=== PATIENT | female | born 1990 | race Caucasian/White ===

== ENCOUNTER 2021-03-15 13:35 | Emergency (ER) | payer MEDICARE ==
[2021-03-15 14:11] VITALS: TEMP 98.2
--- NOTE | 2021-03-15 15:16 | XR ---
EXAMINATION TYPE: XR chest 2V DATE OF EXAM: 03/15/2021 COMPARISON: 06/08/2010 INDICATION: Chest pain TECHNIQUE: Frontal and lateral views of the chest are obtained. FINDINGS: The heart size is normal. The pulmonary vasculature is normal. The lungs are clear. IMPRESSION: 1. No acute pulmonary process.
[2021-03-15 15:21] LABS: ALT 32 U/L (4-34); AST 28 U/L (14-36); African American GFR (CKD) >90 (>60 ml/min/1.73 sqM); Albumin 4.1 g/dL (3.5-5.0); Alkaline Phosphatase 58 U/L (38-126); Anion Gap 9 mmol/L; Blood Urea Nitrogen 14 mg/dL (7-17); Calcium 9.8 mg/dL (8.4-10.2); Carbon Dioxide 24 mmol/L (22-30); Chloride 104 mmol/L (98-107); Glucose 105 mg/dL (74-99); Magnesium 1.8 mg/dL (1.6-2.3); Non-African American GFR(CKD) >90 (>60 ml/min/1.73 sqM); Potassium 3.9 mmol/L (3.5-5.1); Sodium 137 mmol/L (137-145); Total Bilirubin 0.3 mg/dL (0.2-1.3); Total Protein 7.5 g/dL (6.3-8.2)
[2021-03-15 15:30] LABS: INR 0.9 (<1.2); Partial Thromboplastin Time 23.2 sec (22.0-30.0); Prothrombin Time 9.6 sec (9.0-12.0)
--- NOTE | 2021-03-15 16:01 | ED ---
General Adult HPI - General Chief complaint: Chest Pain Stated complaint: Chest Pain Time Seen by Provider: 03/15/21 15:29 Source: patient, family, RN notes reviewed, old records reviewed Mode of arrival: wheelchair Limitations: no limitations - History of Present Illness Initial comments: 30 -year-old female presenting with chief complaint of chest pain and syncopal episode. Patient was at work. She developed a central sharp chest pain. Moments after this pain began she did pass out and fall backwards. She had head trauma. She was unconscious for approximately 1 minute. She denies current . Denies abdominal pain nausea vomiting. Denies previous history of CAD or PE. - Related Data Home Medications Medication Instructions Recorded Confirmed No Known Home Medications 03/15/21 03/15/21 Allergies Allergy/AdvReac Type Severity Reaction Status Date / Time anesthesia medication AdvReac Unknown Uncoded 03/15/21 15:53 Review of Systems ROS Statement: Those systems with pertinent positive or pertinent negative responses have been documented in the HPI. ROS Other: All systems not noted in ROS Statement are negative. Past Medical History History of Any Multi-Drug Resistant Organisms: None Reported Additional Past Surgical History / Comment(s): I&D right inner thigh 2009 Past Psychological History: Depression Smoking Status: Current every day smoker Past Alcohol Use History: None Reported Past Drug Use History: Marijuana General Exam Limitations: no limitations General appearance: alert, in no apparent distress Head exam: Present: normocephalic, other (Occipital soft tissue swelling, no laceration) Eye exam: Present: normal appearance, PERRL ENT exam: Present: normal exam Neck exam: Present: normal inspection. Absent: tenderness, meningismus Respiratory exam: Present: normal lung sounds bilaterally. Absent: respiratory distress, wheezes, rales Cardiovascular Exam: Present: regular rate, normal rhythm GI/Abdominal exam: Present: soft. Absent: distended, tenderness, guarding, rebound Extremities exam: Present: normal inspection, normal capillary refill. Absent: pedal edema Neurological exam: Present: alert, oriented X3, CN II-XII intact. Absent: motor sensory deficit Psychiatric exam: Present: normal affect, normal mood Skin exam: Present: warm, dry, intact. Absent: cyanosis, diaphoretic Course Vital Signs 03/15/21 03/15/21 14:02 17:08 Temperature 98.2 F Pulse Rate 62 56 L Respiratory 20 18 Rate Blood Pressure 151/84 137/76 O2 Sat by Pulse 100 100 Oximetry EKG Findings - EKG Comments: EKG Findings:: EKG: Sinus bradycardia, rate 58, GA interval 124, QRS duration 82, QTC 410, no ST segment elevation. Medical Decision Making - Medical Decision Making 22-year-old female with an episode of chest pain or syncope. Workup is initiated, EKG is sinus rhythm. She has stable vitals. She is uncertain exactly why she developed chest pain or passed out. There was no medial foot injury of this and she did have a bashir syncopal episode with collapse. She had head trauma. Head CT was obtained which is negative for intracranial hemorrhage or traumatic injury. She had a normal CBC, normal CMP negative troponin. Her d-dimer was elevated and CT angiography of the chest was obtained which was negative for any acute process. I did plan to observe this patient overnight for telemetry and serial cardiac enzymes. The patient declines. She states she feels fine. She wishes to be discharged home and will follow-up with her primary care physician. - Lab Data Result diagrams: 03/15/21 14:56 03/15/21 14:56 Lab Results 03/15/21 03/15/21 03/15/21 Range/Units 14:56 14:56 14:56 WBC 8.6 (3.8-10.6) k/uL RBC 4.64 (3.80-5.40) m/uL Hgb 13.9 (11.4-16.0) gm/dL Hct 40.9 (34.0-46.0) % MCV 88.1 D (80.0-100.0) fL MCH 30.0 (25.0-35.0) pg MCHC 34.1 (31.0-37.0) g/dL RDW 13.2 (11.5-15.5) % Plt Count 267 (150-450) k/uL MPV 8.9 Neutrophils % 73 % Lymphocytes % 21 % Monocytes % 3 % Eosinophils % 1 % Basophils % 0 % Neutrophils # 6.3 (1.3-7.7) k/uL Lymphocytes # 1.8 (1.0-4.8) k/uL Monocytes # 0.3 (0-1.0) k/uL Eosinophils # 0.1 (0-0.7) k/uL Basophils # 0.0 (0-0.2) k/uL PT 9.6 (9.0-12.0) sec INR 0.9 (<1.2) APTT 23.2 (22.0-30.0) sec D-Dimer 0.70 H (<0.60) mg/L FEU Sodium 137 (137-145) mmol/L Potassium 3.9 (3.5-5.1) mmol/L Chloride 104 (98-107) mmol/L Carbon Dioxide 24 (22-30) mmol/L Anion Gap 9 mmol/L BUN 14 (7-17) mg/dL Creatinine 0.52 (0.52-1.04) mg/dL Est GFR (CKD-EPI)AfAm >90 (>60 ml/min/1.73 sqM) Est GFR (CKD-EPI)NonAf >90 (>60 ml/min/1.73 sqM) Glucose 105 H (74-99) mg/dL Calcium 9.8 (8.4-10.2) mg/dL Magnesium 1.8 (1.6-2.3) mg/dL Total Bilirubin 0.3 (0.2-1.3) mg/dL AST 28 (14-36) U/L ALT 32 (4-34) U/L Alkaline Phosphatase 58 (38-126) U/L Troponin I (0.000-0.034) ng/mL Total Protein 7.5 (6.3-8.2) g/dL Albumin 4.1 (3.5-5.0) g/dL Urine Color Urine Appearance (Clear) Urine pH (5.0-8.0) Ur Specific [place] (1.001-1.035) Urine Protein (Negative) Urine Glucose (UA) (Negative) Urine Ketones (Negative) Urine Blood (Negative) Urine Nitrite (Negative) Urine Bilirubin (Negative) Urine Urobilinogen (<2.0) mg/dL Ur Leukocyte Esterase (Negative) Urine RBC (0-5) /hpf Urine WBC (0-5) /hpf Ur Squamous Epith Cells (0-4) /hpf Urine Mucus (None) /hpf Urine HCG, Qual (Not Detectd) 03/15/21 03/15/21 03/15/21 Range/Units 14:56 16:15 16:15 WBC (3.8-10.6) k/uL RBC (3.80-5.40) m/uL Hgb (11.4-16.0) gm/dL Hct (34.0-46.0) % MCV (80.0-100.0) fL MCH (25.0-35.0) pg MCHC (31.0-37.0) g/dL RDW (11.5-15.5) % Plt Count (150-450) k/uL MPV Neutrophils % % Lymphocytes % % Monocytes % % Eosinophils % % Basophils % % Neutrophils # (1.3-7.7) k/uL Lymphocytes # (1.0-4.8) k/uL Monocytes # (0-1.0) k/uL Eosinophils # (0-0.7) k/uL Basophils # (0-0.2) k/uL PT (9.0-12.0) sec INR (<1.2) APTT (22.0-30.0) sec D-Dimer (<0.60) mg/L FEU Sodium (137-145) mmol/L Potassium (3.5-5.1) mmol/L Chloride (98-107) mmol/L Carbon Dioxide (22-30) mmol/L Anion Gap mmol/L BUN (7-17) mg/dL Creatinine (0.52-1.04) mg/dL Est GFR (CKD-EPI)AfAm (>60 ml/min/1.73 sqM) Est GFR (CKD-EPI)NonAf (>60 ml/min/1.73 sqM) Glucose (74-99) mg/dL Calcium (8.4-10.2) mg/dL Magnesium (1.6-2.3) mg/dL Total Bilirubin (0.2-1.3) mg/dL AST (14-36) U/L ALT (4-34) U/L Alkaline Phosphatase (38-126) U/L Troponin I <0.012 (0.000-0.034) ng/mL Total Protein (6.3-8.2) g/dL Albumin (3.5-5.0) g/dL Urine Color Light Yellow Urine Appearance Clear (Clear) Urine pH 5.5 (5.0-8.0) Ur Specific [place] 1.007 (1.001-1.035) Urine Protein Negative (Negative) Urine Glucose (UA) Negative (Negative) Urine Ketones Negative (Negative) Urine Blood Moderate H (Negative) Urine Nitrite Negative (Negative) Urine Bilirubin Negative (Negative) Urine Urobilinogen <2.0 (<2.0) mg/dL Ur Leukocyte Esterase Negative (Negative) Urine RBC <1 (0-5) /hpf Urine WBC 1 (0-5) /hpf Ur Squamous Epith Cells 1 (0-4) /hpf Urine Mucus Rare H (None) /hpf Urine HCG, Qual Not Detected (Not Detectd) Disposition Clinical Impression: Chest pain, Syncope Disposition: HOME SELF-CARE Condition: Good Instructions (If sedation given, give patient instructions): Chest Pain (ED), Syncope (ED) Is patient prescribed a controlled substance at d/c from ED?: No Referrals: None,Stated [REFERRING] - 1-2 days Selwyn Huitron [Primary Care Provider] - 1-2 days Time of Disposition: 18:21
[2021-03-15 16:07] LABS: Basophils % (A) 0 %; Eosinophils # (A) 0.1 k/uL (0-0.7); Eosinophils % (A) 1 %; HCT 40.9 % (34.0-46.0); HGB 13.9 gm/dL (11.4-16.0); Lymphocytes # (A) 1.8 k/uL (1.0-4.8); Lymphocytes % (A) 21 %; MCHC 34.1 g/dL (31.0-37.0); Mean Platelet Volume 8.9; Monocytes # (A) 0.3 k/uL (0-1.0); Monocytes % (A) 3 %; Neutrophils # (A) 6.3 k/uL (1.3-7.7); Neutrophils % (A) 73 %; Platelet Count 267 k/uL (150-450); RBC 4.64 m/uL (3.80-5.40); RDW 13.2 % (11.5-15.5); WBC 8.6 k/uL (3.8-10.6)
[2021-03-15 16:08] LABS: MCV 88.1 fL (80.0-100.0)
[2021-03-15 16:20] LABS: Appearance,Urine Clear (Clear); Bilirubin,Urine Negative (Negative); Blood,Urine Moderate (Negative); Color,Urine Light Yellow; Glucose,Urine (UA) Negative (Negative); Ketones,Urine Negative (Negative); Leukocyte Esterase,Urine Negative (Negative); Mucus,Urine Rare /hpf; Nitrite,Urine Negative (Negative); PH, Urine 5.5 (5.0-8.0); Protein,Urine Negative (Negative); RBC,Urine <1 /hpf (0-5); Specific Gravity,Urine 1.007 (1.001-1.035); Squamous Epithelial Cell,Urine 1 /hpf (0-4); Urobilinogen,Urine <2.0 mg/dL (<2.0); WBC,Urine 1 /hpf (0-5)
--- NOTE | 2021-03-15 17:08 | CT ---
EXAMINATION TYPE: CT brain wo con DATE OF EXAM: 03/15/2021 COMPARISON: None HISTORY: syncope CT DLP: 1102.[address] of the brain was performed. The ventricles, basal cisterns and sulci overlying the cerebral convexities demonstrate a normal appe arance. There is no evidence for intracranial hemorrhage or sulcal effacement. No mass effects are seen. Osseous calvarium is intact. Posterior parietal scalp hematoma. If symptoms persist consider MRI as clinically warranted. IMPRESSION: 1. No acute intracranial process is seen at this time.
[2021-03-15 17:21] VITALS: BP 137/76; PULSE 56; RESP 18
--- NOTE | 2021-03-15 17:22 | CT ---
EXAMINATION TYPE: CT angio chest DATE OF EXAM: 03/15/2021 COMPARISON: none HISTORY: chest pain CT DLP: 712.3 mGycm CONTRAST: CT chest with contrast and 3D reconstruction with MIP imaging is performed with IV Contrast, patient injected with 100 mL of Isovue 370. Contrast-enhanced CT of the chest was performed through the course of the pulmonary arteries with christal g and mediastinal window settings submitted. 3D reconstruction with MIP imaging was also performed. PULMONARY ARTERIES: The pulmonary arteries and their major tributaries are patent. I do not see angela dence for sizable filling defect to suggest pulmonary embolic process. LUNGS: The lungs are clear and free of infiltrate. No evidence for atelectasis. No pulmonary nodule or mass is detected. No pleural effusion. MEDIASTINUM: Thoracic aorta is of normal caliber.The heart is not enlarged. No evidence for mediast inal mass. No mediastinal lymph nodes greater than 1cm. HILAR STRUCTURES: No evidence for mass. No hilar lymph nodes greater than 1 cm. UPPER ABDOMEN: No significant abnormality is seen. IMPRESSION: 1. No evidence for Pulmonary embolism at this time.
[2021-03-15] MEDS ORDERED: ACETAMINOPHEN TAB 500 MG TAB PO STA (18:38)
== END 2021-03-15 18:41 | disposition home or self-care (01) ==
LOC: EC 13:35
DX: R07.89 Other chest pain (principal); R55 Syncope and collapse; F32.A Depression, unspecified; F17.200 Nicotine dependence, unspecified, uncomplicated; F12.90 Cannabis use, unspecified, uncomplicated
CPT/HCPCS: 99285; 36415; 93005; 85379; 80053; 83735; 84484; 85025; 85610; 85730; 81001; 81025; 71046; 70450; 71275; Q9967

== ENCOUNTER 2023-02-26 06:26 | Inpatient (IN) | payer OTHER ==
--- NOTE | 2023-02-25 15:45 | P.HPOB ---
History of Present Illness H&P Date: 02/25/23 Chief Complaint: Induction of labor This is a 32 y.o. female, 2, para 1, with an estimated date of confinement of 02/28/2023, estimated gestational age of 39-5/7 weeks, who presents for induction of labor for obesity in . She does have irregular contractions and pressure. She has been getting regular NSTs due to obesity. She has been on baby aspirin for prevention of preeclampsia. labs: Hepatitis B surface antigen-neg RPR-NR Rubella-immune Blood type-O+ Antibody screen-neg Quad-neg Hemoglobin-11.9 HIV-NR Toxoplasma-neg Hepatitis C-neg Random glucose-79 1 hr. GTT-116 GBS-neg OB Hx: . History of 1 vaginal delivery at 37-6/7 weeks due to gestational hypertension. Mechanical Project Engineer Hx: History of chlamydia treated at age 20. Social Hx: Engaged. 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 Review of Systems Constitutional: Denies chills, Denies fever Eyes: denies blurred vision, denies pain Ears, nose, mouth and throat: Denies headache, Denies sore throat Cardiovascular: Denies chest pain, Denies shortness of breath Respiratory: Denies cough Gastrointestinal: Reports abdominal pain (irreg. ctxs) Genitourinary: Reports pelvic pain, Reports Musculoskeletal: Reports low back pain Integumentary: Denies pruritus, Denies rash Neurological: Denies numbness, Denies weakness Psychiatric: Reports anxiety, Reports depression Past Medical History Past Medical History: No Reported History History of Any Multi-Drug Resistant Organisms: None Reported Additional Past Surgical History / Comment(s): I&D right inner thigh 2008 Past Anesthesia/Blood Transfusion Reactions: Previous Problems w/ Anesthesia (Unable to wake up from anesthesia for 6 hours after I&D on thigh.) Additional Past Anesthesia/Blood Transfusion Reaction / Comment(s): postop couldnt wake up or breathe, had to be ventilated Past Psychological History: Anxiety, Depression Smoking Status: Current every day smoker, Vaper Past Alcohol Use History: None Reported Past Drug Use History: Marijuana - Past Family History Mother Family Medical History: Hypertension Sister(s) Family Medical History: Diabetes Mellitus Medications and Allergies Home Medications Medication Instructions Recorded Confirmed Type Aspirin [[place] Aspirin EC] 81 mg PO 02/25/23 History Vit No.179/Iron/Folic 1 each PO 02/25/23 History [ Tablet] Allergies Allergy/AdvReac Type Severity Reaction Status Date / Time anesthesia medication AdvReac Unknown Uncoded 12/05/21 10:51 Exam Osteopathic Statement: *. No significant issues noted on an osteopathic structural exam other than those noted in the History and Physical/Consult. HEENT: within normal limits Heart: regular rate and rhythm Lungs: clear to auscultation bilaterally Abdomen: , non-tender Cervix: 1.5 cm/60-70%/-2 heart tones: 140's by doppler Extremities: neg. Omar's Assessment and Plan (1) 39 weeks gestation of Status: Acute Code(s): Z3A.39 - 39 WEEKS GESTATION OF SNOMED Code(s): 07111282 Plan: Admission for oxytocin induction of labor. Epidural anesthesia if desired. Expectant management.
[2023-02-26] MEDS ORDERED: TERBUTALINE 1 MG/ML VIAL SQ PRN (06:59)
[2023-02-26] MEDS ORDERED: miSOPROStoL 200 MCG TAB PO PRN (06:59)
[2023-02-26] MEDS ORDERED: TRANEXAMIC 1,000 MG/100ML-NACL 1,000 MG in EMPTY BAG 1 BAG IV PRN (06:59)
[2023-02-26] MEDS ORDERED: OXYTOCIN 30 UNITS/500 ML NS 30 UNIT in SALINE 1 500ML.BAG IV SCH (06:59)
[2023-02-26] MEDS ORDERED: OXYTOCIN 10 UNIT/ML 1 ML VIAL IM PRN (06:59)
[2023-02-26] MEDS ORDERED: METHYLERGONOVINE 0.2 MG/ML 1 ML AMP IM PRN (06:59)
[2023-02-26] MEDS ORDERED: CARBOPROST TROMETHAMINE 250 MCG/ML 1 ML AMP IM PRN (06:59)
[2023-02-26] MEDS ORDERED: LIDOCAINE 1% (10MG/ML) FOR IV START INTRADERMA PRN (06:59)
[2023-02-26] MEDS ORDERED: LIDOCAINE 0.5% (PF) 5 MG/ML (50 ML SDV) SQ PRN (06:59)
[2023-02-26 07:20] LABS: Basophils % (A) 0 %; Eosinophils # (A) 0.1 k/uL (0-0.7); Eosinophils % (A) 1 %; HCT 34.8 % (34.0-46.0); HGB 11.9 gm/dL (11.4-16.0); Lymphocytes # (A) 2.4 k/uL (1.0-4.8); Lymphocytes % (A) 18 %; MCH 29.3 pg (25.0-35.0); MCHC 34.2 g/dL (31.0-37.0); MCV 85.7 fL (80.0-100.0); Mean Platelet Volume 7.6; Monocytes # (A) 0.5 k/uL (0-1.0); Monocytes % (A) 4 %; Neutrophils # (A) 10.1 k/uL (1.3-7.7); Neutrophils % (A) 76 %; Platelet Count 317 k/uL (150-450); RBC 4.06 m/uL (3.80-5.40); RDW 13.9 % (11.5-15.5); WBC 13.3 k/uL (3.8-10.6)
[2023-02-26] MEDS: LACTATED RINGERS 1,000 ML IV SCH ×3 (07:20→16:53)
[2023-02-26 08:20] LABS: Glucose,Urine (UA) Negative (Negative); Ketones,Urine Negative (Negative); Protein,Urine Negative (Negative)
[2023-02-26 08:57] LABS: Amphetamine Screen,Urine Not Detected (NotDetected); Barbiturate Screen,Urine Not Detected (NotDetected); Benzodiazepines Screen,Urine Not Detected (NotDetected); Cocaine Screen,Urine Not Detected (NotDetected); Methadone Screen, Urine Not Detected (NotDetected); Opiate Screen,Urine Not Detected (NotDetected); Oxycodone Screen, Urine Not Detected (NotDetected); Phencyclidine Screen,Urine Not Detected (NotDetected); Tricyclic Antidepressant,Urine Not Detected (NotDetected); Urn Cannabinoid Scrn Not Detected (NotDetected)
[2023-02-26] MEDS ORDERED: ROPIVACAINE 5 MG/ML 30 ML VIAL ONE (13:25)
[2023-02-26] MEDS ORDERED: fentaNYL (PF) 50 MCG/ML 5 ML AMP ONE (13:25)
[2023-02-26] MEDS ORDERED: SODIUM CHLORIDE 0.9% 250 ML BAG ONE (13:25)
[2023-02-26] MEDS ORDERED: ZOLPIDEM 5 MG TAB PO PRN (19:34)
[2023-02-26] MEDS ORDERED: diphenhydrAMINE 50 MG CAP PO PRN (19:34)
[2023-02-26] MEDS ORDERED: LANOLIN CREAM 5 GM TUBE TOPICAL PRN (19:34)
[2023-02-26] MEDS ORDERED: BENZOCAINE/MENTHOL SPRAY 1 GM/SPRAY AEROSOL TOPICAL PRN (19:34)
[2023-02-26] MEDS ORDERED: HYDROCORTISONE 2.5% RECTAL CREAM 30 GM TUBE RECTAL PRN (19:34)
[2023-02-26] MEDS ORDERED: diphenhydrAMINE 25 MG CAP PO PRN (19:34)
[2023-02-26] MEDS ORDERED: diphenhydrAMINE 50 MG/ML 1 ML VIAL IVP PRN ×2 (19:34)
[2023-02-26] MEDS ORDERED: SIMETHICONE 80 MG CHEWABLE PO PRN (19:34)
--- NOTE | 2023-02-26 19:37 | P.PROBDLV ---
Vaginal Delivery Note - . Vaginal Delivery Note: The patient progressed to complete dilation after oxytocin induction of labor and artificial rupture membranes with clear fluid noted. She did receive epidural anesthesia. Once reaching complete, she began pushing. 's head came to a crown fairly rapidly. With one further push, the head delivered across the perineum followed by the anterior shoulder. Nose and mouth were bulb suctioned and then with one further push, the remainder the infant easily delivered and was placed on mother's abdomen. Body cord times one was reduced around the infant with delivery. Cord was clamped and cut and infant was taken to warmer for evaluation. A viable female infant was noted with scores of 8 at 1 minute and 9 at 5 minutes and weight of 6 lbs. 1 oz. Placenta delivered shortly thereafter, intact, with three-vessel cord. Uterus contracted fairly well after oxytocin was opened up and uterus was massaged. Inspection of the perineum revealed a first-degree right vaginal wall tear. This area was anesthetized with 1% lidocaine and then sutured with 3-0 and 2-0 Vicryl suture in a running locked fashion. There was noted to be a vessel that was pumping quite briskly in this area. After multiple stitches were placed, good hemostasis was noted. Estimated blood loss is approximately 150 mL's. Both mother and infant are in stable condition.
[2023-02-27] MEDS: IBUPROFEN 600 MG TAB PO PRN ×3 (03:48→19:31)
[2023-02-27] MEDS: ACETAMINOPHEN TAB 325 MG TAB PO PRN ×2 (05:52→23:50)
[2023-02-27] MEDS: SENNOSIDES-DOCUSATE SODIUM 1 EACH TAB PO SCH ×3 (05:52→19:33)
--- NOTE | 2023-02-27 07:41 | P.DS ---
Providers Date of admission: 02/26/23 06:42 Expected date of discharge: 02/27/23 Attending physician: Palma Falk Primary care physician: Stated None - Discharge Diagnosis(es) (1) 39 weeks gestation of Current Visit: No Status: Acute Hospital Course: This is a 32-year-old female 2 para 1 at 39-5/7 weeks who presented for induction of labor. She underwent oxytocin induction of labor and delivered vaginally a viable female with scores of 8 at 1 minute and 9 at 5 minutes and weight of 6 lbs. 1 oz. She did have epidural during her labor. She also had a Son catheter that was in place most of her labor due to decelerations and the potential for emergent section. This was removed right before delivery. She has been able to urinate one time since delivery. It has currently been about 5 hours since her last urination. Lochia is decreasing. She is bottle feeding. Vital signs are stable. Abdomen is soft with fundus firm and nontender. Extremities show negative Homans. Impression is status post vaginal delivery day #1. Plan is to discharge home later today as long as she is able to urinate okay on her own and baby is able to go home. Routine instructions are given. She will be given a prescription for ibuprofen. She is advised to follow up in the office in 6 we eks for check. She is advised to call the office if she has any further questions or concerns prior to her appointment time. Procedures: Oxytocin induction of labor Spontaneous vaginal delivery of a viable female on 02/26/2023 Patient Condition at Discharge: Stable Plan - Discharge Summary New Discharge Prescriptions: New Ibuprofen [Motrin] 600 mg PO Q6HR PRN #60 tab PRN Reason: Mild Pain (Scale 1 To 3) Discharge Medication List Ibuprofen [Motrin] 600 mg PO Q6HR PRN #60 tab 02/27/23 [Rx] Follow up Appointment(s)/Referral(s): Palma Falk DO [Doctor of Osteopathic Medicine] - 04/07/23 4:00 pm Activity/Diet/Wound Care/Special Instructions: Instructions 1. Do not begin any exercise program for 3 weeks. 2. Do not resume sexual relations for 3 weeks or longer if uncomfortable. 3. You may take tub baths or showers at any time. 4. You may use tampons if desired after 3 weeks. 5. Keep the area of episiotomy (stitches) clean and dry. 6. If you are not nursing, wear a good fitting, supportive bra during the day and limit fluid intake for at least 1 week to prevent breast engorgement. 7. Call the office, [phone], within the next week to make appointment for your 6 week checkup if it has not already been made. 8. Report any of the following occurrences to the doctor promptly: a. Heavy, excessive bleeding b. Chills, fever c. Burning or frequency of urination d. Pain or redness and breasts if nursing e. Increasing pain or swelling in episiotomy (stitches). In addition to the above instructions, the following additional should be followed: 1. No heavy lifting or straining (exercising) until after 6 week checkup. 2. Keep abdominal incision clean and dry: You may wear a dressing if more comfortable. 3. Make office appointment for 10 days after going home or as instructed by her doctor. Discharge Disposition: HOME SELF-CARE
[2023-02-27 08:33] LABS: Basophils % (A) 0 %; Eosinophils # (A) 0.1 k/uL (0-0.7); Eosinophils % (A) 1 %; HCT 31.6 % (34.0-46.0); HGB 10.4 gm/dL (11.4-16.0); Lymphocytes % (A) 23 %; MCH 28.7 pg (25.0-35.0); MCHC 32.8 g/dL (31.0-37.0); MCV 87.6 fL (80.0-100.0); Mean Platelet Volume 7.9; Monocytes # (A) 0.5 k/uL (0-1.0); Monocytes % (A) 4 %; Neutrophils % (A) 71 %; Platelet Count 245 k/uL (150-450); RBC 3.61 m/uL (3.80-5.40); RDW 14.1 % (11.5-15.5); WBC 12.7 k/uL (3.8-10.6)
[2023-02-28 00:46] VITALS: RESP 20
--- NOTE | 2023-02-28 07:21 | P.PNOBGVD ---
Subjective - Subjective Patient reports: Reports appetite normal, Reports voiding normally, Reports pain well controlled, Reports ambulating normally : doing well Objective - Latest Vital Signs Latest vital signs: Vital Signs Temp Pulse Resp BP Pulse Ox 02/28/23 00:00 98.8 F 86 20 136/81 02/27/23 16:00 97.9 F 82 16 106/70 99 02/27/23 08:00 98.0 F 78 16 121/81 97 - Exam Lungs: bilateral: normal Chest: Normal S1, Normal S2 Extremities: Present: normal Abdomen: Present: normal appearance, soft Uterus: Present: normal, firm - Labs Labs: Abnormal Lab Results - Last 24 Hours (Table) 02/27/23 Range/Units 07:26 WBC 12.7 H (3.8-10.6) k/uL RBC 3.61 L (3.80-5.40) m/uL Hgb 10.4 L (11.4-16.0) gm/dL Hct 31.6 L (34.0-46.0) % Neutrophils # 9.0 H (1.3-7.7) k/uL Assessment and Plan Assessment: day #2. Patient is resting without new complaints. She initially wanted to go home yesterday however changed her mind is baby was having some issues that resolved. Plan today is to continue routine care discharge home later today (1) Normal vaginal delivery Current Visit: Yes Status: Acute Code(s): O80 - ENCOUNTER FOR FULL-TERM UNCOMPLICATED DELIVERY SNOMED Code(s): 51567879
[2023-02-28] MEDS: SENNOSIDES-DOCUSATE SODIUM 1 EACH TAB PO SCH (08:57)
[2023-02-28 09:00] VITALS: BP 113/76; PULSE 79; TEMP 97.7
[2023-02-28] MEDS: IBUPROFEN 600 MG TAB PO PRN (09:09)
== END 2023-02-28 14:12 | disposition home or self-care (01) | DRG 807 ==
LOC: 4FBP 06:42
PROVIDERS: ADMIT Obstetrics & Gynecology; ATTEND Obstetrics & Gynecology
PROC: 0KQM0ZZ Repair Perineum Muscle, Open Approach (ICD-10-PCS; principal; 2023-02-26)
PROC: 10E0XZZ Delivery of Products of Conception, External Approach (ICD-10-PCS; principal; 2023-02-26)
PROC: 3E033VJ Introduction of Other Hormone into Peripheral Vein, Percutaneous Approach (ICD-10-PCS; 2023-02-26)
PROC: 10907ZC Drainage of Amniotic Fluid, Therapeutic from Products of Conception, Via Natural or Artificial Opening (ICD-10-PCS; 2023-02-26)
DX: O99.214 Obesity complicating childbirth (principal); Z37.0 Single live birth; O99.334 Smoking (tobacco) complicating childbirth; O70.0 First degree perineal laceration during delivery; Z28.310 Unvaccinated for COVID-19; Z3A.39 39 weeks gestation of pregnancy; F17.290 Nicotine dependence, other tobacco product, uncomplicated; Z79.82 Long term (current) use of aspirin; Z79.899 Other long term (current) drug therapy; Z88.4 Allergy status to anesthetic agent
CPT/HCPCS: 80306; 81003; 85025; 86850; 86900; 86901

== ENCOUNTER 2023-03-03 15:22 | Emergency (ER) | payer OTHER ==
--- NOTE | 2023-03-03 16:13 | ED ---
Female Urogenital HPI <Luca Gutierrez - Last Filed: 03/03/23 18:49> - General Source: patient, RN notes reviewed Mode of arrival: ambulatory Limitations: no limitations - History of Present Illness Last Menstrual Period: 03/03/23 <Maggy Martinez - Last Filed: 03/03/23 21:12> - General Chief complaint: Vaginal Bleeding Stated complaint: lots of vagianl blood loss Time Seen by Provider: 03/03/23 16:07 - History of Present Illness Initial comments: 32-year-old female on 02/26/23 presenting today due vaginal bleeding. She states over the past few days has had some abdominal cramping. The patient states today had episode were she had vaginal bleeding in which she passed clots. States that bleeding lasted for approximately 2 hours and other areas of now is now resolved however continues to have some abdominal cramping. No lightheadedness or dizziness. No urinary symptoms. No chest pain or shortness of breath. No other complaints. (Luca Gutierrez) Patient is a 32-year-old female presented ER with chief complaint of vaginal bleeding. Patient is 4 days from a vaginal delivery. Patient denies any chest pain or shortness of breath. (Maggy Martinez) - Related Data Previous Rx's Medication Instructions Recorded Ibuprofen [Motrin] 600 mg PO Q6HR PRN #60 tab 02/27/23 Allergies Allergy/AdvReac Type Severity Reaction Status Date / Time anesthesia medication AdvReac Unknown Uncoded 02/26/23 06:58 Review of Systems ROS Other: All systems not noted in ROS Statement are negative. <Luca Gutierrez - Last Filed: 03/03/23 18:49> ROS Other: All systems not noted in ROS Statement are negative. <Maggy Martinez - Last Filed: 03/03/23 21:12> ROS Statement: Those systems with pertinent positive or pertinent negative responses have been documented in the HPI. Past Medical History Past Medical History: No Reported History Additional Past Medical History / Comment(s): post pardum 02/26/23 History of Any Multi-Drug Resistant Organisms: MRSA Date of last positivie culture/infection: 2009 MDRO Source:: R thigh Past Surgical History: No Surgical Hx Reported Additional Past Surgical History / Comment(s): I&D right inner thigh 2009 Past Anesthesia/Blood Transfusion Reactions: Previous Problems w/ Anesthesia Additional Past Anesthesia/Blood Transfusion Reaction / Comment(s): postop couldnt wake up or breathe, had to be ventilated Past Psychological History: Anxiety, Depression Smoking Status: Current every day smoker Past Alcohol Use History: None Reported Past Drug Use History: Marijuana - Past Family History Mother Family Medical History: Hypertension Sister(s) Family Medical History: Diabetes Mellitus <Maggy Martinez - Last Filed: 03/03/23 21:12> General Exam General appearance: alert, in no apparent distress Neck exam: Present: normal inspection Respiratory exam: Present: normal lung sounds bilaterally Cardiovascular Exam: Present: regular rate, normal rhythm GI/Abdominal exam: Present: soft (No significant tenderness to palpation. No rebound guarding or rigidity.) External exam: Present: other (Exam chaperoned by Matilda TAYLOR. Blood in the vaginal vault however no active bleeding. Exam limited secondary to body habitus.) Neurological exam: Present: alert, oriented X3 Skin exam: Present: warm, dry <Luca Gutierrez - Last Filed: 03/03/23 18:49> Limitations: no limitations <Maggy Martinez - Last Filed: 03/03/23 21:12> - General Exam Comments Initial Comments: Visual Physical Exam Vital signs reviewed General: Well-appearing, nontoxic, no acute distress. Head: Normocephalic, atraumatic Eyes: PERRLA, EOMI ENT: Airway patent Chest: Nonlabored breathing Skin: No visual rash, normal skin tone Neuro: Alert and oriented 3 Musculoskeletal: No gross abnormalities (Maggy Martinez) Course Vital Signs 03/03/23 03/03/23 15:50 18:52 Temperature 97.9 F 97.9 F Pulse Rate 86 81 Respiratory 20 16 Rate Blood Pressure 118/67 115/71 O2 Sat by Pulse 97 100 Oximetry Medical Decision Making - Lab Data Result diagrams: 03/03/23 17:00 03/03/23 17:00 <Luca Gutierrez - Last Filed: 03/03/23 18:49> - Lab Data Result diagrams: 03/03/23 17:00 03/03/23 17:00 <Maggy Martinez - Last Filed: 03/03/23 21:12> - Medical Decision Making Was pt. sent in by a medical professional or institution (, PA, VACUUM FRAME OPERATOR, urgent care, hospital, or senior care...) When possible be specific @ -No Did you speak to anyone other than the patient for history (EMS, parent, family, police, friend...)? What history was obtained from this source @ -No Did you review nursing and triage notes (agree or disagree)? Why? @ -I reviewed and agree with nursing and triage notes Were old charts reviewed (outside hosp., previous admission, EMS record, old EKG, old radiological studies, urgent care reports/EKG's, senior care records)? Report findings @ -No old charts were reviewed Differential Diagnosis (chest pain, altered mental status, abdominal pain women, abdominal pain men, vaginal bleeding, weakness, fever, dyspnea, syncope, headache, dizziness, GI bleed, back pain, seizure, CVA, palpatations, mental health, musculoskeletal)? @ -Differential Vaginal Bleeding: Spontaneous , threatened , molar , ectopic , bloody show, incompetent cervix, abruptioplacenta, placenta previa, uterine rupture, dysfunctional uterine bleeding, hemorrhage, uterine fibroids, this is not meant to be an all-inclusive list. EKG interpreted by me (3pts min.). @ -None X-rays interpreted by me (1pt min.). @ -None done CT interpreted by me (1pt min.). @ -None done U/S interpreted by me (1pt. min.). @ -Pending What testing was considered but not performed or refused? (CT, X-rays, U/S, labs)? Why? @ -None What meds were considered but not given or refused? Why? @ -None Did you discuss the management of the patient with other professionals (professionals i.e. , PA, VACUUM FRAME OPERATOR, lab, RT, psych nurse, social media marketing manager, performance improvement manager, teacher, first aid officer, manager of case)? Give summary @ -No Was smoking cessation discussed for >3mins.? @ -No Was critical care preformed (if so, how long)? @ -No Were there social determinants of health that impacted care today? How? (Homeles sness, low income, unemployed, alcoholism, drug addiction, transportation, low edu. Level, literacy, decrease access to med. care, assisted, rehab)? @ -No Was there de-escalation of care discussed even if they declined (Discuss DNR or withdrawal of care, Hospice)? DNR status @ -No What co-morbidities impacted this encounter? (DM, HTN, Smoking, COPD, CAD, Cancer, CVA, ARF, Chemo, Hep., AIDS, mental health diagnosis, sleep apnea, morbid obesity)? @ -None Was patient admitted / discharged? Hospital course, mention meds given and route, prescriptions, significant lab abnormalities, going to OR and other pertinent info. @ -Pending 32-year-old female on 02/26/23 presenting to the ED with a few days of abdominal cramping and episode of vaginal bleeding today. Laboratory studies including CBC and CMP unremarkable. HCG is 174.9 however no prior results to trend. At this time, transvaginal ultrasound is pending in case signed out to Erika Martinez PA-C (Luca Gutierrez) I performed the quick note portion of the exam. Electronically signed by Maggy Martinez PA-C Case signed out to me from Chan Gutierrez PA-C at end of shift pending US results. Was patient admitted / discharged? Hospital course, mention meds given and route, prescriptions, significant lab abnormalities, going to OR and other pertinent info. @ -[Discharged. Labs obtained in the ER were stable Hgb 11.2. HCG 174.9. Transvaginal US showed a uterus with heterogeneous debris in the endometrium which are avascular. Likely blood products versus retained products of conception. I discussed with the patient return parameters. I also explained to her that vaginal bleeding after a vaginal is normal and can vary in duration. I advised patient to follow-up with her AUTO BODY REPAIRER in the next 1-2 days. Patient was discharged in stable condition. Patient expressed understa nding and agreement with care plan. Undiagnosed new problem with uncertain prognosis? @ -No Drug Therapy requiring intensive monitoring for toxicity (Heparin, Nitro, Insulin, Cardizem)? @ -No Were any procedures done? @ -No Diagnosis/symptom? @ - vaginal bleeding Acute, or Chronic, or Acute on Chronic? @ -Acute Uncomplicated (without systemic symptoms) or Complicated (systemic symptoms)? @ -Uncomplicated Side effects of treatment? @ -No Exacerbation, Progression, or Severe Exacerbation? @ -No Poses a threat to life or bodily function? How? (Chest pain, USA, [place], pneumonia, PE, COPD, DKA, ARF, appy, cholecystitis, CVA, Diverticulitis, Homicidal, Suicidal, threat to staff... and all critical care pts) @ -No (Maggy Martinez) - Lab Data Lab Results 03/03/23 03/03/23 03/03/23 Range/Units 17:00 17:00 17:00 WBC 11.0 H (3.8-10.6) k/uL RBC 3.85 (3.80-5.40) m/uL Hgb 11.2 L (11.4-16.0) gm/dL Hct 33.4 L (34.0-46.0) % MCV 86.9 (80.0-100.0) fL MCH 29.0 (25.0-35.0) pg MCHC 33.4 (31.0-37.0) g/dL RDW 14.2 (11.5-15.5) % Plt Count 338 (150-450) k/uL MPV 7.1 Neutrophils % 77 % Lymphocytes % 16 % Monocytes % 4 % Eosinophils % 2 % Basophils % 0 % Neutrophils # 8.5 H (1.3-7.7) k/uL Lymphocytes # 1.8 (1.0-4.8) k/uL Monocytes # 0.4 (0-1.0) k/uL Eosinophils # 0.2 (0-0.7) k/uL Basophils # 0.0 (0-0.2) k/uL Sodium 136 L (137-145) mmol/L Potassium 4.3 (3.5-5.1) mmol/L Chloride 104 (98-107) mmol/L Carbon Dioxide 24 (22-30) mmol/L Anion Gap 8 mmol/L BUN 15 (7-17) mg/dL Creatinine 0.55 (0.52-1.04) mg/dL Est GFR (CKD-EPI)AfAm >90 (>60 ml/min/1.73 sqM) Est GFR (CKD-EPI)NonAf >90 (>60 ml/min/1.73 sqM) Glucose 101 H (74-99) mg/dL Calcium 9.0 (8.4-10.2) mg/dL Total Bilirubin 0.3 (0.2-1.3) mg/dL AST 28 (14-36) U/L ALT 36 H (4-34) U/L Alkaline Phosphatase 89 (38-126) U/L Total Protein 6.4 (6.3-8.2) g/dL Albumin 3.2 L (3.5-5.0) g/dL HCG, Quant 174.9 mIU/mL Blood Type O Positive Blood Type Recheck O Pos Bld Type Recheck Status No Disposition <Luca Gutierrez - Last Filed: 03/03/23 18:49> Is patient prescribed a controlled substance at d/c from ED?: No Time of Disposition: 20:49 <Maggy Martinez - Last Filed: 03/03/23 21:12> Clinical Impression: Vaginal bleeding Disposition: HOME SELF-CARE Condition: Stable Additional Instructions: Please return to the Emergency Department if symptoms worsen or any other concerns. Please follow-up with your AUTO BODY REPAIRER in the next 1-2 days. Referrals: None,Stated [Primary Care Provider] - 1-2 days
[2023-03-03 17:17] LABS: Basophils % (A) 0 %; Eosinophils # (A) 0.2 k/uL (0-0.7); Eosinophils % (A) 2 %; HCT 33.4 % (34.0-46.0); HGB 11.2 gm/dL (11.4-16.0); Lymphocytes # (A) 1.8 k/uL (1.0-4.8); Lymphocytes % (A) 16 %; MCHC 33.4 g/dL (31.0-37.0); MCV 86.9 fL (80.0-100.0); Mean Platelet Volume 7.1; Monocytes # (A) 0.4 k/uL (0-1.0); Monocytes % (A) 4 %; Neutrophils # (A) 8.5 k/uL (1.3-7.7); Neutrophils % (A) 77 %; Platelet Count 338 k/uL (150-450); RBC 3.85 m/uL (3.80-5.40); RDW 14.2 % (11.5-15.5)
[2023-03-03 17:23] LABS: ALT 36 U/L (4-34); AST 28 U/L (14-36); African American GFR (CKD) >90 (>60 ml/min/1.73 sqM); Albumin 3.2 g/dL (3.5-5.0); Alkaline Phosphatase 89 U/L (38-126); Anion Gap 8 mmol/L; Blood Urea Nitrogen 15 mg/dL (7-17); Carbon Dioxide 24 mmol/L (22-30); Chloride 104 mmol/L (98-107); Glucose 101 mg/dL (74-99); Non-African American GFR(CKD) >90 (>60 ml/min/1.73 sqM); Potassium 4.3 mmol/L (3.5-5.1); Sodium 136 mmol/L (137-145); Total Bilirubin 0.3 mg/dL (0.2-1.3); Total Protein 6.4 g/dL (6.3-8.2)
[2023-03-03 17:39] LABS: HCG,Quantitative Serum 174.9 mIU/mL
[2023-03-03] MEDS ORDERED: KETOROLAC 15 MG/ML 1 ML VIAL IVP STA (18:10)
--- NOTE | 2023-03-03 19:58 | US ---
EXAMINATION TYPE: US pelvic complete DATE OF EXAM: 03/03/2023 COMPARISON: NONE CLINICAL INDICATION: Female, 32 years old with history of post vag bleed; Pt gave vagina lly on 02/26/23. . Pt states heavy bleeding and pain today, but only lasted around 30 minutes. Pt states bleeding and pain have since became minimal. TECHNIQUE: . Transabdominal sonographic images of the pelvis were acquired. Transvaginal exam not p erformed due to pt having 2nd degree tears with stiches as well as being 4 days pp vaginally. Date of LMP: Over 9 months ago EXAM MEASUREMENTS: Uterus: 15.1 x 10.3 x 8.3 cm Endometrial Stripe: 1.7 cm Right Ovary: 2.0 x 1.9 x 1.3cm cm Left Ovary: 2.4 x 1.7 x 1.1 cm 1. Uterus: Anteverted Enlarged due to being 2. Endometrium: Thickened and heterogeneous, but no hypervascularity seen. 3. Right Ovary: wnl 4. Left Ovary: wnl Spectral, color and waveform doppler imaging shows good arterial and venous flow within the ovaries ; there is no evidence for ovarian torsion. 5. Bilateral Adnexa: wnl 6. Posterior cul-de-sac: wnl IMPRESSION: uterus with some heterogenous debris in the endometrium which is avascular. Findings could represent blood products versus retained products of conception felt to be less likely.
[2023-03-03 21:17] VITALS: BP 136/77; PULSE 86; RESP 18; TEMP 98.1
== END 2023-03-03 21:18 | disposition home or self-care (01) ==
LOC: EC 15:22
DX: N93.9 Abnormal uterine and vaginal bleeding, unspecified (principal); F17.200 Nicotine dependence, unspecified, uncomplicated; F12.90 Cannabis use, unspecified, uncomplicated; Z86.59 Personal history of other mental and behavioral disorders
CPT/HCPCS: 36415; 86900; 86901; 80053; 85025; 84702; 76856; 99284; 96374; J1885

== ENCOUNTER 2024-07-24 23:30 | Emergency (ER) | payer OTHER ==
--- NOTE | 2024-07-24 23:49 | ED ---
Wound/Laceration HPI - General Chief Complaint: Wound/Laceration Stated Complaint: Rt finger laceration Time Seen by Provider: 07/24/24 23:39 Source: patient, RN notes reviewed Mode of arrival: ambulatory Limitations: no limitations - History of Present Illness Initial Comments: This is a 34-year-old female presenting to emergency department for complaint of a laceration to the right third digit. Patient states that she was moving her oven when her finger got pinched and she has been having trouble controlling the bleeding since 2200 this evening. She states that she is up-to-date on her tetanus vaccines. - Related Data Previous Rx's Medication Instructions Recorded Ibuprofen [Motrin] 600 mg PO Q6HR PRN #60 tab 02/27/23 Allergies Allergy/AdvReac Type Severity Reaction Status Date / Time anesthesia medication AdvReac Unknown Uncoded 07/24/24 23:31 Review of Systems ROS Statement: Those systems with pertinent positive or pertinent negative responses have been documented in the HPI. ROS Other: All systems not noted in ROS Statement are negative. Past Medical History Past Medical History: No Reported History Additional Past Medical History / Comment(s): post pardum 02/26/23 History of Any Multi-Drug Resistant Organisms: MRSA Date of last positivie culture/infection: 2009 MDRO Source:: R thigh Past Surgical History: No Surgical Hx Reported Additional Past Surgical History / Comment(s): I&D right inner thigh 2008 Past Anesthesia/Blood Transfusion Reactions: Previous Problems w/ Anesthesia Additional Past Anesthesia/Blood Transfusion Reaction / Comment(s): postop couldnt wake up or breathe, had to be ventilated Past Psychological History: Anxiety, Depression Smoking Status: Current every day smoker Past Alcohol Use History: None Reported Past Drug Use History: Marijuana - Past Family History Mother Family Medical History: Hypertension Sister(s) Family Medical History: Diabetes Mellitus General Exam Limitations: no limitations General appearance: alert, in no apparent distress ENT exam: Present: normal exam, mucous membranes moist Cardiovascular Exam: Present: regular rate, normal rhythm, normal heart sounds. Absent: systolic murmur, diastolic murmur, rubs, gallop, clicks GI/Abdominal exam: Present: soft, normal bowel sounds. Absent: distended, tenderness, guarding, rebound, rigid Right Hand Wrist exam: Present: laceration (distal third digit, 2.5 mm) Neuro motor exam: Present: wrist extension intact, thumb opposition intact Vascular: Present: normal capillary refill. Absent: vascular compromise Course Vital Signs 07/24/24 07/25/24 23:31 00:38 Temperature 97.4 F L 98.1 F Pulse Rate 104 H 72 Respiratory 16 18 Rate Blood Pressure 140/90 118/80 O2 Sat by Pulse 98 99 Oximetry Medical Decision Making - Medical Decision Making Was pt. sent in by a medical professional or institution (, LARY, LEGAL BILLING COORDINATOR, urgent care, hospital, or jail...) When possible be specific @ -No Did you speak to anyone other than the patient for history (EMS, parent, family, police, friend...)? What history was obtained from this source @ -No Did you review nursing and triage notes (agree or disagree)? Why? @ -I reviewed and agree with nursing and triage notes Were old charts reviewed (outside hosp., previous admission, EMS record, old EKG, old radiological studies, urgent care reports/EKG's, jail records)? Report findings @ -No old charts were reviewed Differential Diagnosis (chest pain, altered mental status, abdominal pain women, abdominal pain men, vaginal bleeding, weakness, fever, dyspnea, syncope, headache, dizziness, GI bleed, back pain, seizure, CVA, palpatations, mental h ealth, musculoskeletal)? @ -Laceration, skin avulsion, tendon injury, this list is not all inclusive EKG interpreted by me (3pts min.). @ -None X-rays interpreted by me (1pt min.). @ -None done CT interpreted by me (1pt min.). @ -None done U/S interpreted by me (1pt. min.). @ -None done What testing was considered but not performed or refused? (CT, X-rays, U/S, labs)? Why? @ -None What meds were considered but not given or refused? Why? @ -None Did you discuss the management of the patient with other professionals (professionals i.e. LARY Hammonds, LEGAL BILLING COORDINATOR, lab, RT, psych nurse, social media job titles, welder pipe making, t eacher, consumer loan officer, case aide)? Give summary @ -No Was smoking cessation discussed for >3mins.? @ -No Was critical care preformed (if so, how long)? @ -No Were there social determinants of health that impacted care today? How? (Homelessness, low income, unemployed, alcoholism, drug addiction, transportation, low edu. Level, literacy, decrease access to med. care, alf, rehab)? @ -No Was there de-escalation of care discussed even if they declined (Discuss DNR or withdrawal of care, Hospice)? DNR status @ -No What co-morbidities impacted this encounter? (DM, HTN, Smoking, COPD, CAD, Cance r, CVA, ARF, Chemo, Hep., AIDS, mental health diagnosis, sleep apnea, morbid obesity)? @ -None Was patient admitted / discharged? Hospital course, mention meds given and route, prescriptions, significant lab abnormalities, going to OR and other pertinent info. @ -Discharge. 34-year-old female presenting with lead to the third stool right digit. Lacerations approximately 2 mm in length, with active bleeding. Patient is neurovascularly intact of the digit and right hand. Topical let is applied that is aided in ceasing bleeding. Supportive treatment discussed at bedside. Case discussed with Dr. Rodriguez Undiagnosed new problem with uncertain prognosis? @ -No Drug Therapy requiring intensive monitoring for toxicity (Heparin, Nitro, Insulin, Cardizem)? @ -No Were any procedures done? @ -No Diagnosis/symptom? @ -laceration Acute, or Chronic, or Acute on Chronic? @ -Acute Uncomplicated (without systemic symptoms) or Complicated (systemic symptoms)? @ -Uncomplicated Side effects of treatment? @ -No Exacerbation, Progression, or Severe Exacerbation? @ -No Poses a threat to life or bodily function? How? (Chest pain, [place], [place], pneumonia, PE, COPD, DKA, ARF, appy, cholecystitis, CVA, Diverticulitis, Homicidal, Suicidal, threat to staff... and all critical care pts) @ -No Disposition Clinical Impression: Laceration Disposition: HOME SELF-CARE Condition: Good Instructions (If sedation given, give patient instructions): Laceration (ED) Additional Instructions: Please return to the Emergency Department if symptoms worsen or any other concerns. Is patient prescribed a controlled substance at d/c from ED?: No Referrals: Giovanni Tena MD [Primary Care Provider] - 1-2 days Time of Disposition: 00:36
[2024-07-24] MEDS: LIDOCAINE/EPINEPHR/TETRACAINE 5 ML BOTTLE TOPICAL ONE (23:57)
[2024-07-25 00:41] VITALS: BP 118/80; PULSE 72; RESP 18; TEMP 98.1
== END 2024-07-25 00:46 | disposition home or self-care (01) ==
LOC: EC 23:30
DX: S61.212A Laceration without foreign body of right middle finger without damage to nail, initial encounter (principal); F17.200 Nicotine dependence, unspecified, uncomplicated; Z88.4 Allergy status to anesthetic agent; Y93.G3 Activity, cooking and baking
CPT/HCPCS: 99282